=== PATIENT | male | born 1950 | race Caucasian/White ===

== ENCOUNTER 2019-06-04 22:30 | Inpatient (IN) | payer MEDICARE, OTHER ==
[~2019-06-04] VITALS: Ht 167.6 cm; Wt 83.9 kg
[2019-06-05] MEDS ORDERED: CYMBALTA60 MG PO (01:31)
[2019-06-05] MEDS ORDERED: METFORMIN HCL500 M1 PO (01:32)
[2019-06-05] MEDS ORDERED: LAMICTAL100 MG PO (01:32)
[2019-06-05] MEDS ORDERED: PERCOCET 7.5/321 TAB PO (01:34)
[2019-06-05] MEDS ORDERED: KLONOPIN1 MG PO (01:39)
[2019-06-05] MEDS ORDERED: ABILIFY10 MG PO ×2 (01:40→01:45)
[2019-06-05] MEDS ORDERED: LISINOPRIL40 MG PO (01:42)
[2019-06-05] MEDS ORDERED: ALBUTEROL SULF8.5 GM INH (01:43)
[2019-06-05] MEDS ORDERED: TOPROL XL50 MG PO ×2 (01:43→01:46)
[2019-06-05] MEDS ORDERED: LIPITOR10 MG PO (01:44)
[2019-06-05] MEDS ORDERED: PRINIVIL20 MG PO (01:46)
[2019-06-05] MEDS ORDERED: ZYLOPRIM100 MG PO (01:47)
[2019-06-05] MEDS ORDERED: ZYRTEC10 MG PO (01:47)
[2019-06-05] MEDS ORDERED: LIPITOR20 MG PO (01:48)
[2019-06-05] MEDS ORDERED: CYCLOBENZAPRINE10 MG PO (01:48)
[2019-06-05] MEDS ORDERED: LISINOPRIL10 MG PO (01:51)
[2019-06-05 02:15] VITALS: BP 147/71; BMI 29.9
--- NOTE | 2019-06-05 03:05 | NUR ---
PT ARRIVES ON UNIT BY FAMILY TRANSPORT FROM [facility]. C/O AUDITORY AND VISUAL HALLUCINATIONS. PT IS AMBULATORY. HIS CODE WORD IS PAPA. CODE STATUS IS FULL CODE. PT CAN MAKE NEEDS KNOWN. ALERT AND ORIENTED X4. PT HAS GOOD INSIGHT INTO HIS SITUATION. PT IS A GOOD HISTORIAN AND IS CALM AND COOPERATIVE WITH STAFF. PT LIVES AT HOME WITH SPOUSE WHO IS PRESENT AT ADMIT.
--- NOTE | 2019-06-05 08:53 | NUR ---
B) The patient is awake and alert, his did bring clothes for him and dentures. he ambulates independently. I) Provide prescribed meds. 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 He is not at this time. P) Continue POC.
[2019-06-05 09:13] LABS: BASOPHILS 0.1 % (0-2); EOSINOPHILS 0.9 % (0-7); HEMATOCRIT 45.2 % (42.0-54.0); IMMATURE GRANULOCYTES 0.2 % (0-5); LYMPHOCYTES 20.2 % (15-50); MCH 31.2 pg (26.0-34.0); MCHC 35.4 g/dL (31.0-37.0); MCV 88.1 fL (80.0-100.0); MEAN PLATELET VOLUME 9.1 fL (7.4-10.4); MONOCYTES 6.9 % (2-11); NEUTROPHILS 71.7 % (40-80); PLATELET COUNT 191 10x3/uL (130-400); RBC 5.13 10x6/uL (4.20-6.10); RDW 13.5 % (11.5-14.5); WBC 9.3 10x3/uL (4.8-10.8)
[2019-06-05 10:02] LABS: ALBUMIN 4.2 g/dL (3.4-5.0); ALKALINE PHOSPHATASE 58 U/L (46-116); ALT (SGPT) 35 U/L (10-68); CALC OSMOLALITY 276 mosm/kg (275-300); CALCIUM 9.6 mg/dL (8.5-10.1); CARBON DIOXIDE 31.7 mmol/L (21.0-32.0); CHLORIDE - SERUM 99 mmol/L (98-107); CHOL - HDL RATIO 3.1 ratio (2.3-4.9); CHOLESTEROL, TOTAL 138 mg/dL (0-200); GLUCOSE 171 mg/dL (74-106); HDL CHOLESTEROL 45 mg/dL (32-96); LDL CHOLESTEROL 61 mg/dL (0-100); LDL-HDL RATIO 1.4 ratio (1.5-3.5); POTASSIUM - SERUM 4.7 mmol/L (3.5-5.1); PROTEIN - SERUM 8.1 g/dL (6.4-8.2); SODIUM 137 mmol/L (136-145); THYROID STIMULATING HORMONE 0.68 uIU/mL (0.36-3.74); TRIGLYCERIDE 164 mg/dL (30-200); UREA NITROGEN 11 mg/dL (7-18); eGFR NON AFRICAN AMERICAN 79 mL/min (90-120)
--- NOTE | 2019-06-05 11:50 | NUR ---
The patient just spoke to the MHT and stated "I'd like to sign out, this is not what was explained to me." The charge nurse Fer spoke to him and she did speak to the mastercam programmer Leana and she said she would be on the unit in a few minutes to speak to the patient.
--- NOTE | 2019-06-05 12:30 | NUR ---
Leana spoke to the patient and she explained a little more about the unit and he did feel a bit better. Micah Darby spoke to him and he agreed to stay until Saturday.
[2019-06-05 13:25] VITALS: Ht 167.6 cm; Wt 83.9 kg
--- NOTE | 2019-06-05 15:34 | NUR ---
The patient is awake and alert, he does say he is feeling anxious and he requests something for anxiety. Provide ativan 0.5 mg po.
--- NOTE | 2019-06-05 16:00 | NUR ---
The patient is less anxious and he is calm and pleasant.
[2019-06-05 16:44] LABS: APPEARANCE CLEAR (CLEAR); BILIRUBIN NEGATIVE (NEGATIVE); COLOR YELLOW (YELLOW); GLUCOSE NEGATIVE (NEGATIVE); KETONE NEGATIVE (NEGATIVE); NITRITE NEGATIVE (NEGATIVE); PROTEIN NEGATIVE (NEGATIVE); UROBILINOGEN NORMAL (NORMAL)
--- NOTE | 2019-06-05 20:30 | NUR ---
REC'D PATIENT SITTING IN THE DAYROOM ALONE. NOT INTERACTIONG WITH PEERS. APPROPRIATE WHEN APPROACHED BY STAFF. RELATES IS HOSPITALIZED "GET MY HEAD STRAIGHT. SEEING THINGS I SHOULDN'T." INFORMED NURSE HE KNEW WHAT HE WAS SEEING WAS NOT REAL. 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 INVOLVE IN REALITY BASED CONVERSATIN AND ACTIVITIES. MED COMPLIANT. APPROPRIATE WITH RESPONSES AND BEHAVIOR WITH STAFF. CONTINUE POC AND PROVIDE SAFE ENVIRONMENT.
[2019-06-05 20:41] VITALS: BP 154/98
[2019-06-06 08:10] LABS: RAPID PLASMA REAGIN Non Reactive (Non Reactive)
--- NOTE | 2019-06-06 08:10 | NUR ---
PATEINT SITTING IN CHAIR AWAITING BREAKFAST. RESP EVEN AND NONLABORED. NO ACUTE DISTRESS NOTED. PT IS ALERT AND ORIENTED X4. PT IS ANXIOUS BUT FRIENDLY. PULSE WAS 107. ATIVAN 0.5 MG PO FOR ANXIETY. PT IS SLEPT 3.25 HOURS. FSBS: 116 MG/DL. WILL REASSESS Q 1 HOUR FOR EFFECTIVENESS. PT DID STATED TO MARKETING SEGMENT MANAGER THAT HE WANTED TO SPEAK TO THE DOCTOR TO ABOUT DISCHARGING TODAY. WILL CONT PLAN OF CARE.
[2019-06-06 08:15] VITALS: BP 150/98
[2019-06-06 09:20] VITALS: BP 150/98
--- NOTE | 2019-06-06 10:20 | NUR ---
The patient is sitting in the day room and it is noted that he is talking to unseen others, he is giving direction to someone and he is moving his arms around in the air.
--- NOTE | 2019-06-06 10:20 | NUR ---
PATIENT WAS SITTING IN GROUP AND HE LOOKED AT ME STATING " THAT CIRO IN THE WINDOW IS KNOCKING SAYING "WE CAN'T BE HERE." NURSE ASKED WHAT CIRO HE WAS LOOKING AT. HE STATED "THAT'S THEM. GENERATION Z IS WHAT I NAMED THEM. IT'S THE ALIENS THAT I SEE. THAT'S WHAT I NAMED THEM." NURSE REDIRECTED CONVERSION TO FOCUS ON THE GROUP IF HE COULD. HE PARTICIPATE WELL AFTERWARDS.
--- NOTE | 2019-06-06 11:30 | NUR ---
The patient began hallucinating in group, he reached down under the table and said "I know you're there." I asked him what he is seeing. He said "A dog." He is jumping up at times without any reason that he said to this nurse.
--- NOTE | 2019-06-06 12:39 | PSY ---
PATIENT NAME:DOUGLAS ANGEL MEDICAL RECORD: [id number] : 54 LOCATION:[id number] ADMISSION DATE: 06/04/19 ACCOUNT: [id number] PSYCHIATRIC EVALUATION DATE OF EVALUATION: 06/05/19 IDENTIFYING DATA: The patient is 69 years old and he is admitted to the hospital on a voluntary basis. CHIEF COMPLAINT: Auditory and visual hallucinations. HISTORY OF PRESENT ILLNESS: The patient has been having both auditory and visual hallucinations for the past several months. He says that they are becoming increasingly frequent and they are usually visual in nature. He has no depressive symptoms. No substance abuse. No evidence of neurologic impairment. He has no longitudinal history of mental illness or substance abuse. It seems that he is taking a large number of medications and feels that is perhaps part of the problem. PAST MEDICAL HISTORY: Significant for diabetes, hypertension, and asthma. PAST PSYCHIATRIC HISTORY: None by his account. ALLERGIES: SULFA. CURRENT MEDICATIONS: Cymbalta, Lamictal, Glucophage, Klonopin, albuterol, Lipitor, Toprol, allopurinol, Zyrtec, Flexeril, and Lisinopril. FAMILY HISTORY: Noncontributory. SOCIAL HISTORY: The patient is now a nonsmoker, nondrinker, and not a user of drugs. 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 He has 2 children and worked for a [employer]. He is now fully retired. MENTAL STATUS EXAMINATION: The patient is awake, alert, and oriented to person, place, time and situation. His mood is flat. His affect is constricted. Thought processes are circumstantial. Memory, concentration, and abstraction abilities are moderately impaired. He denies any active intent to harm himself or others as well as overt psychotic symptoms. ASSETS: Supportive family members. LIABILITIES: Limited insight. DIAGNOSTIC IMPRESSION: AXIS I: Major depression, mild to moderate. 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 AXIS II: None. AXIS III: Diabetes, seizure disorder, asthma, hyperlipidemia, gout, hypertension, allergic rhinitis, vitamin D deficiency, and osteoarthritis. AXIS IV: Moderate. AXIS V: Global assessment of functioning is 45. PLAN: At this time, the patient is admitted to the hospital secondary to perceptual psychotic change not associated with a substance use disorder or chronic mental illness. I believe it is pharmacologically induced. I am going to make changes to his scheduled medicines to reduce that interaction and we will try to avoid using an antipsychotic. TRANSINT:[id number] Voice Confirmation ID: [id number] DOCUMENT ID: [id number] CHAN CARRENO MD at 1239 CC: [id number] DICTATION DATE: 06/05/191823 SHIRT FOLDING MACHINE OPERATOR: 06/05/19 183 ADM IN [place] [id number] [place] [address]
[2019-06-06] MEDS ORDERED: ABILIFY10 MG PO (12:59)
[2019-06-06] MEDS ORDERED: CYMBALTA30 MG PO (12:59)
[2019-06-06] MEDS ORDERED: DEPAKOTE500 MG PO (12:59)
[2019-06-06] MEDS ORDERED: VITAMIN D5000 UNIT PO (13:00)
--- NOTE | 2019-06-06 13:52 | NUR ---
Patient stating he is seeing a truck up close to the window. Explained to the patient that he is probably experiencing hallucinations, but I did look to reassure the patient and he then says "Oh, it's backed off now."
--- NOTE | 2019-06-06 14:19 | NUR ---
Dr. Baldwin discharged the patient and I just spoke to the patient's spouse and let her know the plan and suggested she come pick him up at 1530. She said she will be here then.
--- NOTE | 2019-06-06 16:04 | NUR ---
D/C PAPERWORK PROVIDED TO THE PATIENT AND HIS SPOUSE, DID GO OVER MEDICATIONS AND ENCOURAGED THE PATIENT TO MAKE AN APPOINTMENT WITH THE PCP. THE PATIENT PROVIDED DR. CHRISTELLE THRASHER IN [place], BUT THE SPOUSE SAID DR. MEYER AT THE [place] BUT THE PATIENT DOES NOT HAVE A PHONE NUMBER OR A FAX NUMBER. THE PATIENT IS NOW D/C'D OFF OF THE UNIT.
--- NOTE | 2019-06-07 11:14 | PN ---
PATIENT:DOUGLAS ANGEL MEDICAL RECORD: [id number] LOCATION:[facility] ADMISSION DATE: 06/04/19 PROGRESS NOTE DATE OF SERVICE: 06/06/2019 SUBJECTIVE: The patient's case was discussed with staff. He has no new complaint. OBJECTIVE: The patient is in good behavioral control. He still had some psychotic symptoms, but he reports that they are dramatically better. Reviewing possible sources of the hallucinations again, I am able to say with a definitive certainty that this is not related to a longstanding substance abuse problem. He is not becoming mentally ill in the sixth decade of life and he obviously has no history of longstanding alcohol or drug abuse. He has a mildly depressed mood, but that is not the explanation either. I think it is almost certainly related to intermixing pharmacology that he is having problems. ASSESSMENT: No change in diagnoses. PLAN: The patient wants to be discharged today. I have advised against this. He is a nice about it, but insistent. He certainly does not meet criteria for an involuntary hold as he is not suicidal, homicidal, or gravely disabled. I am encouraged by the improvement he has shown in the past few days, but would prefer to see him stay here a little longer and allow me to continue to observe and make adjustments in his medicines, but he says that he has to go home because he has a $6000 sleep number bed and that he just really cannot sleep anywhere else and that is making him worse to sleep here. Given the circumstances and that he is not dangerous and I think the hallucinations are related to mixing interaction of medications and mixing of them causing the hallucinations, I am going to go ahead and discharge him. He will follow up with the mental hygiene clinic at the [place] as well as his primary care doctor at the [place]. TRANSINT:[id number] Voice Confirmation ID: [id number] DOCUMENT ID: [id number] CHAN CARRENO MD at 1114 CC: [id number] DICTATION DATE: 06/06/19 1257 ANIMAL CYTOLOGIST: 06/06/19 1308 DIS IN 06/06/19 [facility] [address] [place] [address]
--- NOTE | 2019-06-13 12:25 | DS ---
PATIENT:DOUGLAS ANGEL :54 MEDICAL RECORD: [id number] DISCHARGE SUMMARY ADMISSION DATE: 06/04/19 DISCHARGE DATE: 06/06/19 IDENTIFYING DATA: The patient is 69 years old and he was admitted to the hospital on a voluntary basis because of auditory and visual hallucinations. The patient has been having these hallucinations for several months. Unfortunately, they have been becoming increasingly frequent and they are primarily visual in nature. He denied being depressed, although he had a number of depressive symptoms. He denied substance abuse and there was no neurologic impairment. He does not have a longitudinal history consistent with either mental illness or substance abuse. He is, however, taking a large number of medications. HOSPITAL COURSE: The patient was admitted to the hospital and fully evaluated from both a medical, psychological, and social standpoint. He was found to be depressed and started on antidepressant medications. The psychotic symptoms were felt to be related to polypharmacy and there was no evidence of any medical or neurologic deficits that would account for these symptoms. There were minor adjustments in his medicines with additional ones to follow, but the patient requested or more accurately insisted on being discharged. He was not behaviorally out of control. He was not unpleasant or rude, but he felt that he needed to go home and that there was no purpose in being here. I did not agree with this, but did not feel that it anisha to the level where I would want him discharged against medical advice because of some of the consequences he would have associated with that, so he was discharged. He did agree to mental health followup and did agree to come back to the hospital if the symptoms returned. During the two and a half days he was here, the symptoms had almost completely evaporated. DISCHARGE DIAGNOSES: AXIS I: 1. Major depression, moderate without psychotic features. 2. 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 AXIS II: None. AXIS III: Diabetes, seizure disorder, asthma, hyperlipidemia, gout, hypertension, allergic rhinitis, vitamin D deficiency, and osteoarthritis. AXIS IV: Moderate. AXIS V: Global assessment of functioning is 50. PLAN: At the time of discharge, the patient was in good behavioral control and had no evidence of acute or direct dangerousness to himself or others. He was tolerating his medications well. His long-term prognosis is guarded. TRANSINT:[id number] Voice Confirmation ID: [id number] DOCUMENT ID: [id number] DISCHARGE SUMMARY REPORT [id number] DOUGLAS ANGEL, CHAN CAMILO at 1225 CC: [id number] DICTATION DATE: 06/12/19 1644 PROCESS CONSULTANT: 06/13/19 0021 DIS IN 06/06/19 [facility] [address] [place] [place] [id number]
== END 2019-06-06 16:04 | disposition home or self-care (01) | DRG 885 ==
LOC: D.PSYCH 22:30
PROVIDERS: ADMIT Psychiatry & Neurology Psychiatry; ATTEND Psychiatry & Neurology Psychiatry
DX: F32.3 Major depressive disorder, single episode, severe with psychotic features (principal); E11.9 Type 2 diabetes mellitus without complications; G40.909 Epilepsy, unspecified, not intractable, without status epilepticus; J45.909 Unspecified asthma, uncomplicated; E78.5 Hyperlipidemia, unspecified; M10.9 Gout, unspecified; E55.9 Vitamin D deficiency, unspecified; M19.90 Unspecified osteoarthritis, unspecified site